=== PATIENT | male | born 1955 | race American Indian/Alaskan Native ===

== ENCOUNTER 2016-09-15 11:39 | Inpatient (IN) | payer BC ==
[~2016-09-15] VITALS: Ht 177.8 cm; Wt 111.1 kg
--- NOTE | ~2016-09-15 | O ---
[facility] [place] [address] OPERATIVE REPORT Name: STEFFI KU Room #: 432-P [facility] IN M.R.#: [id number] Admission: 09/22/16 Attend Phys: Jeff Khan MD Discharge: 09/26/16 Date of : 55 Report #: [id number] THIS REPORT FOR: //name// CC: Juanjo Khan DATE OF SERVICE: 09/22/2016 PREOPERATIVE DIAGNOSES: 1. Lumbar spondylosis. 2. Lumbar stenosis. 3. Lumbar spondylolisthesis. 4. L4-L5 synovial cyst. 5. Right flank lipoma, approximately 2 cm POSTOPERATIVE DIAGNOSES: 1. Lumbar spondylosis. 2. Lumbar stenosis. 3. Lumbar spondylolisthesis. 4. L4-L5 synovial cyst. 5. Right flank lipoma, approximately 2 cm. HISTORY: The patient is a pleasant 60-year-old female with a history of chronic back and persistent right lower extremity radicular type complaints. The patient had undergone previous surgical procedure involving multilevel lumbar laminectomy, and has had recurrent and persistent pain. The patient's imaging studies demonstrated the presence of a moderately well decompressed lumbar spinal canal. In addition, the patient has what appears to be a synovial cyst on the right at L4-L5, tracking along the right L5 nerve root, as well as asymmetrical collapse of the L3-L4 disk space with the retrolisthesis of L3 over L4 and severe neural foraminal stenosis on the left side. The patient was counseled in the outpatient setting, regarding further conservative therapy versus surgical intervention. At this point in time, given the nature and persistence of his complaints, negative impact of these complaints on his daily life, and in correlation with the available imaging studies, I have recommended the patient to pursue a surgical option. The goals of surgery, as well as risks and benefits were reviewed with the patient in outpatient clinical setting, and is adequately documented on the outpatient chart. The patient and his family have acknowledged the understanding of this discussion, and they wished to proceed with surgery. Consent was signed and placed on the chart. DESCRIPTION OF PROCEDURE: The patient was taken to the operating room by Anesthesia, having IVs placed preoperatively. He underwent successful placement of an endotracheal tube for general endotracheal anesthesia. Antibiotics were given per protocol. Lira catheter was placed. The patient was then gently rotated from the supine to prone position on top of the radiolucent [address] [address] OPERATIVE REPORT Name: STEFFI KU Room #: 432-P [facility] IN M.R.#: [id number] Admission: 09/22/16 Attend Phys: Jeff Khan MD Discharge: 09/26/16 Date of : 55 Report #: [id number] table in standard spine configuration. His arms were gently rotated to be in position above his head, with care taken to maintain his elbows and shoulders at less than 90 degrees of flexion. All pressure points were checked and found to be adequately padded. The patient's back was then cleaned, prepped, and draped in the usual sterile fashion. Neurophysiologic monitoring was initiated with somatosensory evoked potentials and free running EMGs. Baselines were established. An external skin marker was used to identify the spinal midline, and two parallel incisions were drawn 3.5 cm lateral to the midline from the top of the L3 pedicle to the bottom of the L5 pedicle. These 2 parallel incisions were then infiltrated with 20 mL of 1% lidocaine with epinephrine. The skin itself was incised #10 blade, down to the thoracolumbar fascia. Thoracolumbar fascia was incised with the same blade. Next, safety wires were placed in the bilateral pedicles of L3, L4, and L5 using Jamshidi needles under AP and lateral fluoroscopic guidance. The wires were then bent out of field. Additionally, on the right-sided L4-L5, a small dilator from Medtronic METRx retractor tray was passed through the wound and fascial opening and docked onto the residual right lamina of L4. Over this, dilator was passed, serial dilators from Medtronic METRx retractor tray. When the wound was successfully dilated to 26 mm, a 26 mm x 7 cm long METRx retractor was passed over the dilators and secured to the table with articulating arm. The dilators were removed. The position and adequacy of the retractor was verified in AP and lateral fluoroscopy. Next, using the microscope to provide illumination and magnification for microdissection, a combination of blunt dissection, as well as electrocautery was used to achieve the residual right L4 lamina through the scar tissue. Once the lamina was identified, the L4-L5 facet complex on the right side was cleared of residual soft tissue. High speed pneumatic drill with sherrill matchstick bur was then used to expand the laminotomy, previously performed at L4-L5 on the right side. Once the ligamentum flavum was identified, an osteotome mallet was then used to disarticulate the inferior articular facet with great care taken not to injure the exposed dura. Residual ligamentum flavum was then perforated with blunt nerve hook, exposing the underlying dura. With the dura in plain view, ligamentum flavum was resected with various sized Kerrison punches. There was obvious evidence of chronic synovial cyst at L4-L5 on the right side. This was attempted to be dissected free from the dura. However, it was very scared in position, and having adequately decompressed the thecal sac and the L5 nerve root externally, I elected to leave some fragments of synovial cyst present, as it did not appear they are causing significant compression as well as out of concern for risk of causing necessary dural injury. Next, the L4 and L5 nerve roots were clearly identified. Bovie electrocautery was used to maintain hemostasis, over the L4-L5 disk space. The thecal sac and the lateral edge of the L5 nerve root was identified and protected with a suction retractor, and #11 blade was then used to perform an annulotomy at L4-L5. Disk material was then recovered from the disk space, disk space at L4-L5 was asymmetrically collapsed. [facility] [address] [place] [address] OPERATIVE REPORT Name: STEFFI KU Room #: 432-P [facility] IN .R.#: [id number] Admission: 09/22/16 Attend Phys: Jeff Khan MD Discharge: 09/26/16 Date of : 55 Report #: [id number] Disk material was then recovered from the L4-L5 disk space using upbiting curettes and various sized rasps were used to clear the disk material, as well as clear fragments of cartilaginous endplate. Next, disk space distractor from [employer] METRx retractor tray were passed in the disk space. Disk space was easily distracted to 10 mm. Next, trials from [employer] Capstone instrument tray were tamped in to disk space and a 9 x 26 mm implant appeared to fit easily. At this point in time, I elected to place bone graft using the patient's own local autograft bone, which was harvested during the decompression, as well as half of the sponge from [employer] Extra Small Infuse kit. The second half of the Infuse sponge was placed in the center of a [employer]DI[employer]onic Elevate 8 mm expanding biomechanical intervertebral device, which was then tamped in the L4-L5 disk space. Having secured the interbody fusion material within the disk space, and adequately decompressed the thecal sac at L4-L5, the microscope was directed inferiorly and the L5 nerve root was then tracked out down towards the neural foramen to ensure that there was any residual synovial cyst material was not causing significant compression. Next, the wound was copiously irrigated with bacitracin irrigation, meticulous hemostasis obtained with bipolar electrocautery and FloSeal. Retractor tube was withdrawn to the skin surface. In the similar fashion on the left side at L3-L4, a 26 mm diameter x 7 cm long METRx retractor tube was placed. The residual lamina at L3 on the left side was identified. High speed pneumatic drill with sherrill matchstick bur was then used to expand the previously placed laminotomy. Osteotome mallet was then used to disarticulate the inferior articular facet of L3. High speed pneumatic drill with sherrill matchstick bur with small Kerrison punch was then used to disarticulate the superior articular facet of L4. Again, residual ligamentum flavum was perforated with blunt nerve hook exposing the underlying dura. With the dura in plain view, ligamentum flavum was resected with various sized Kerrison punches. While protecting both the L3 and L4 nerve roots, a #11 blade was used to perform annulotomy at L3-L4. Due to the collapsed nature of the disk space, as well as retrolisthesis of L3 over L4. A small curette was paced in the disk space and once the disk space was clearly identified, disk space distractor from Medtronic METRx retractor tray was placed in the disk space, and a 9 mm distractor was left in place. Attention returned to the right side, over the previously placed safety wires, polyaxial pedicle screws from the Medtronic Voyager instrument tray were placed using 6.5 x 50 mm polyaxial screws, both at L4 and L5, and a 6.5 x 55 mm polyaxial screw on the right at L3. A 60 mm prebent cobalt chrome virgilio was passed between the screw heads, and using the reduction facet screws, the patient's spondylolisthesis at L3-L4 was reduced to a neutral plane. This allowed for neural foraminal decompression. Set screws were temporarily tightened into position. Attention returned back to the left side, where the previously placed disk space distractor was removed. The disk space was cleared of disk material using various sized curettes and rasp. Next, disk space trial from [employer] Capstone instrument tray were tamped in to disk space, and again a 9 x 26 mm implant appeared to fit easily. Again, I elected to place a expanding biomechanical device at L3-L4, and attempted to correct the patient's [address] [address] OPERATIVE REPORT Name: KINGSARMENWILLY HERI Room #: 432-P [facility] IN .R.#: [id number] Admission: 09/22/16 Attend Phys: Jeff Khan MD Discharge: 09/26/16 Date of : 55 Report #: [id number] spondylolisthesis and degenerative disk changes. The patient's own local autograft bone, which was harvested during the decompression was morcellized and placed within the L3-L4 disk space, as well as half of the sponge from [employer] Extra Small Infuse kit. Second half of the Infuse sponge was placed within an 8 mm expandable [employer] Elevate biomechanical intervertebral device, which was then passed within the L3-L4 disk space. The expandable cage was then expanded until it was taut in its location. The pig farm manager assembly was removed. The temporarily placed set screws on the right side were tightened in their final position. The set screws on the right side were tightened to their torque-limited breakoff point. These screw assemblies were removed. On the left side, the wound was copiously irrigated with bacitracin-containing irrigation. Meticulous hemostasis obtained with bipolar electrocautery and FloSeal. Retractor was withdrawn to skin surface. Polyaxial pedicle screws from [employer] Voyager instrument tray were placed on the left side using 6.5 x 50 mm polyaxial screws at both L4 and L5 and 6.5 x 55 mm screw at L3. Again, a 60 mm prebent cobalt chrome virgilio was passed between the screw heads. Set screws were tightened in the position, and tightened to their torque limited breakoff point. The screw assemblies were removed. The wounds were copiously irrigated with bacitracin irrigation. On the right side, where the patient complained of previous lipoma, I dissected inferiorly from the right flank wound, until the lipoma, which I could palpate through the skin was identified. An Allis clamp was placed to young the lipoma, and the lipoma was excised using electrocautery and sharp technique. Specimen of lipoma was sent to pathology per routine. The wound was copiously irrigated with bacitracin irrigation. Meticulous hemostasis obtained with bipolar electrocautery and FloSeal. The muscle and fascia was closed with interrupted 2-0 Vicryl stitches. A 20 mL of 0.75% Marcaine with epinephrine was injected to the paraspinous muscle to act as local anesthesia. Skin itself was closed with inverted interrupted 2-0 Vicryl stitches, and running 4-0 subcuticular Vicryl stitch. Dressings of Mastisol, Steri-Strips, Telfa, and Tegaderm were applied. The patient was then awoken from anesthesia, and taken to PACU in hemodynamically stable and satisfactory condition. All needle, sponge, and instrument counts were correct times 2 per nursing at the end of the case. <ELECTRONICALLY SIGNED> By: Jeff Khan MD 10/13/16 1101 [id number] 1852 Jeff Khan MD /roldan
--- NOTE | ~2016-09-15 | S ---
[facility] [place] [address] SURGICAL PATH RPT PROCEDURE Name: ERIS MCCULLOUGH Room #: 537-P ADM IN M.R.#: [id number] Admission: 09/22/16 Date of : 55 Discharge: Report #: [id number] Path Case #: [id number] PATHOLOGY REPORT COLLECTION DATE: 09/22/2016 RECEIVED DATE: 09/22/2016 SUBMITTING PHYS: Dr. Jeff Khan MD,PhD OTHER PHYS: Dr. Juanjo Roman SPECIMEN(S) RECEIVED: A.Synovial cyst B.Lipoma right flank * * * * * * * * * * * * FINAL DIAGNOSIS: A. "Synovial cyst," excision: - Synovium with reactive synovial hyperplasia, fibrosis, focal calcifications, and myxoid degeneration. (see comment) B. "Lipoma right flank," excision: - Fibroadipose connective tissue with dense fibrosis, focal fat necrosis, proliferative nerves and reactive changes. (see comment) COMMENT: Within specimen A, the findings are histologically compatible with the clinical impression of synovial cyst. Within specimen B, the findings are histologically suggestive of reparative changes and/or possible scar tissue. Clinical correlation is recommended. (ANGELIAW:; d/t: 09/23/16) PATHOLOGIST: Elana Oneill M.D. REPORT ELECTRONICALLY SIGNED BY: Elana Oneill M.D. DATE/TIME: 09/23/2016 17:08 * * * * * * * * * * * * GROSS PATHOLOGY: A. The specimen is received in formalin labeled "Eris Mccullough, synovial cyst". Received are multiple segments of pink-greenwood fibromembranous tissue measuring 2.8 x 2.5 x 0.4 cm in aggregate dimensions. The specimen is submitted entirely in cassette A1. B. Received in formalin labeled "Eris Mccullough, lipoma right flank," is a segment of pink-greenwood fibroadipose tissue measuring 2.2 x 1.4 x 1.0 cm in maximum dimensions. Sectioning reveals white-greenwood, fibrous cut surfaces throughout. The specimen is submitted entirely in cassette B1. (CAA; 09/22/2016) [address] [place] [address] SURGICAL PATH RPT PROCEDURE Name: ERIS MCCULLOUGH Room #: 537-P ADM IN M.R.#: [id number] Admission: 09/22/16 Date of : 55 Discharge: Report #: [id number] Path Case #: [id number] CLINICAL HISTORY: Lumbar spondylolithiasis INITIAL CPT CODE(S): A; 34559 B; 39109 Professional services performed by [facility] at [address], [place] [address] Technical services performed by [facility] at [address] [place] [address], [facility] [[email or web address]] [address] [address]. [facility] [address] [address] PHONE: [phone] DIRECTOR: John Chan M.D. * * * END OF REPORT * * *
--- NOTE | ~2016-09-15 | H ---
[facility] [place] [address] HISTORY AND PHYSICAL Name: STEFFI KU Room #: 432-P [facility] IN M.R.#: [id number] Admission: 09/22/16 Attend Phys: Jfef Khan MD Discharge: 09/26/16 Date of : 55 Report #: [id number] THIS REPORT FOR: //name// CC: Juanjo Khan AMENDED REPORT - SEE BELOW DICTATED BY: Ana Lilia Murphy RN DATE OF SERVICE: 09/07/2016 Date of surgery is 09/22/2016 at [facility]. PROCEDURE: A left-sided L3-L4 and right L4-L5 transforaminal lumbar interbody fusion with bilateral pedicle screw virgilio fixation with possible open end attempt to resect residual lipoma on right low back. HISTORY OF PRESENT ILLNESS: The patient is a pleasant 60-year-old male who has been followed in the outpatient neurosurgery clinic regarding his lumbar complaints. The patient has a prior history of an L4-L5 decompression surgery about 12 years ago, but reports his pain did not improve following surgery and his pain has progressively worsened over the past 5 years. The patient reports he has ongoing low back pain radiating down his right buttock, wrapping around into his hip and anteriorly down his right leg, stopping at the ankle. He also reports severe muscle cramps in his legs at night. He reports tingling to his right anterior ware and complaints of subjective weakness in his right lower extremity. He reports occasional left ware pain, bilateral median thigh pain with pressure to the touch. For treatment, he has received multiple epidural steroid injections over the years with the last one being about 3-4 months ago. These gave him temporary relief but do not last. He also completed 3 months of physical therapy with some relief and he has continued to do exercises at home. His pain management physician, Dr. Ramos prescribes tramadol about 2 tablets per day for symptom management. He chronic medications for his pain. The patient denies any further issues at this time. He presents today to proceed with his surgical option for his lumbar spine complaints. CURRENT MEDICATIONS: Lantus 100 units/mL 25 units daily, omeprazole 40 mg once a day, tamsulosin 0.4 mg once a day, oxaprozin 600 mg as directed, Topamax 25 mg twice a day, aspirin 81 mg once a day, metoprolol 25 mg twice a day, meloxicam 15 mg once a day, paroxetine 30 mg once a day, Ambien 10 mg once a day, cyclobenzaprine 10 mg 3 times a day, tramadol 50 mg every 6 hours as needed, Humalog insulin 100 units/mL solution 25 units twice a day, multivitamin daily, potassium as directed, magnesium as directed, iron as directed. PAST MEDICAL HISTORY: Arthritis, diabetes mellitus, heart disease, chest pain. [address] [address] HISTORY AND PHYSICAL Name: STEFFI KU Room #: 432-P [facility] IN M.R.#: [id number] Admission: 09/22/16 Attend Phys: Jeff Khan MD Discharge: 09/26/16 Date of : 55 Report #: [id number] PAST SURGICAL HISTORY: Lipoma removal low back, left knee x 2, bilateral feet, bilateral hips replaced, lumbar decompression L4-L5, cardiac stents. SOCIAL HISTORY: The patient is a former smoker. The patient reports no alcohol use. The patient denies illicit drug use. He reports a low-sodium, low-carb, low-fat, low sugar diet. ALLERGIES: To CODEINE, which causes nausea. REVIEW OF SYSTEMS: GENERAL AND CONSTITUTIONAL: The patient admits to fatigue. The patient denies fever, weight gain, weight loss. EYES: The patient denies double vision, blind spots, pain, glasses. ALLERGY AND IMMUNOLOGY: The patient denies seasonal allergies. ENT: The patient admits to nasal congestion and ringing in the ears. The patient denies dizziness, decreased hearing, difficulty swallowing, ear pain. ENDOCRINE: The patient admits to low blood sugar and high blood sugar and excessive thirst. The patient denies hair loss, thyroid disease, cold intolerance, heat intolerance. RESPIRATORY: The patient admits to snoring and shortness of breath with exertion. The patient denies cough, hemoptysis, shortness of breath at rest, wheezing. CARDIOVASCULAR: The patient denies swelling of feet or ankles, high blood pressure, chest pain, difficulty lying flat, palpitations. GASTROINTESTINAL: The patient denies jaundice, abdominal pain, change in bowel habits, constipation, diarrhea, heartburn, nausea, rectal bleeding, vomiting. HEMATOLOGY: The patient denies DVTs, bleeding disorder, easy bruising, swollen glands. GENITOURINARY: The patient denies blood in urine, painful urination. The patient admits to frequent urination and urgency. SKIN: The patient denies eczema, hives, itching, rash, skin lesions. PSYCHIATRIC: The patient denies sleep problems, depression, anxiety, difficulty sleeping. SLEEP: The patient admits to excessive daytime sleepiness. PHYSICAL EXAMINATION: GENERAL: The patient is 70 inches tall, weighs 264 pounds, BMI 37.88. GENERAL APPEARANCE: Adult male, alert, pleasant, no acute distress, obese body habitus, appears comfortable, calm and relaxed. HEAD: Normocephalic, atraumatic. EYES: Extraocular movement full and smooth; pupils equal, round, react to light and accommodation; sclerae are nonicteric. NECK AND THYROID: Neck supple, full range of motion. Trachea midline. SKIN: Good turgor, warm and dry. MUSCULOSKELETAL: No swelling or deformity. [facility] [address] [place] [address] HISTORY AND PHYSICAL Name: STEFFI KU Room #: 432-P [facility] IN M.R.#: [id number] Admission: 09/22/16 Attend Phys: Jeff Khan MD Discharge: 09/26/16 Date of : 55 Report #: [id number] BACK: No scoliosis, no kyphosis, extensive midline surgical scar over lumbar spine, right lower lumbar mobile palpable mass, approximately 1 cm in diameter consistent with previous diagnosis of lipoma; upper extremity 4-5 cm lateral to the midline. NEUROLOGIC: Alert and oriented to person, place, time; cerebellar function normal; cognitive exam grossly normal; cooperative with exam; cranial nerves 2-12 grossly intact; no objective signs of myelopathy appreciated; rises from seated position slowly; gait antalgic; motor strength 5/5 upper and 4+/5 lower extremities; no rigidity; no tremor; sensory exam intact. PSYCHIATRIC: Cooperative with exam; good eye contact; judgment and insight good; mood/affect full range; speech clear; thought process logical, goal directed. IMAGING REVIEWED: 1. Lumbar x-rays in flexion and extension [facility] which revealed disk space narrowing noted at L1, L2, L3 seen greatest at L2-L3. Grade 1 anterior spondylolisthesis of L4 on L5 is noted which changes from 4 mm to 7 mm during flexion. It reduces 3 mm on extension. 2. MRI lumbar spine without contrast [facility], impression: Fairly severe lumbar spondylosis with some mild subluxations is noted. Laminectomy changes are seen at L2-L3 through L4-L5. Bulging disk at multiple levels with some persistent spinal stenosis, which is moderate to severe along the upper L5 level. Moderate synovial cyst is seen on lateral recess on the right at the upper L5 level. There is a small disk extrusion from L3-L4 in the left paramedian location long the upper L4 level. TREATMENT PLAN: We reviewed the patient's interval health history as well as his current presenting complaints and their probable relationships with the previously obtained clinical and radiographic data. The patient is noted to be symptomatic from a combination of stenosis at L4-L5 with superimposed right L4-L5 synovial cyst and mobile spondylolisthesis as well as central disk protrusion with stenosis at L3-L4. We again discussed options to improve the patient's presenting complaints including both continued conservative management versus surgical intervention. At this point in time, given the nature and persistence of his complaints, negative impact of these complaints on his daily life and in correlation with available imaging studies, I recommend the patient pursue a surgical option. Specifically, I have recommended the patient submit to a right-sided transforaminal lumbar interbody fusion at L4-L5 and left-sided transforaminal lumbar interbody fusion at L3-L4 with bilateral L3 through L5 pedicle screw virgilio fixation. I discussed with the patient that we will also attempt to resect remaining portions of his lipoma in the right low back, which seems to by bother him. The patient has other region of significant degenerative change within his visualized thoracic and lumbar spine, I do not proceed to have additional surgical management, I would like to provide the patient with improved satisfaction or outcome from surgery. The goals of surgery as well as risks and benefits were reviewed in detail. [facility] [address] [address] HISTORY AND PHYSICAL Name: STEFFI KU Room #: 432-P [facility] IN M.R.#: [id number] Admission: 09/22/16 Attend Phys: Jeff Khan MD Discharge: 09/26/16 Date of : 55 Report #: [id number] surgery included but were not exclusively limited to bleeding, infection, risk of spinal fluid leakage and its consequences, injury to local structures including the nerve roots, which could lead to permanent pain and/or disability, potential for hardware/implant failure and/or malfunction with the need for further surgery, risk of developing additional areas of structural instability, failure of surgical intervention with the possibility of residual or recurrent symptoms as well as risk of hospitalization undergoing general anesthesia. The patient had the opportunity to have his questions answered to his satisfaction. The patient has acknowledged understanding of discussion as well as the proposed plan of care. After careful consideration of our discussion, the patient expresses his decision to proceed with surgery as described above. I recommended utilization of intraoperative neurophysiologic monitoring to assess for electrodiagnostic changes during surgery, which may affect clinical judgment. The patient will follow up in the postoperative period per routine. AMENDED (DEMOGRAPHIC ERROR) - 09/24/16 REPORT ORIGINALLY E.SIGNED - 09/21/16 @ 0916 <ELECTRONICALLY SIGNED> By: Jeff Khan MD 10/13/16 1057 [id number] 1712 Jeff Khan MD /nt
--- NOTE | ~2016-09-15 | HC ---
[facility] [address] CONSULTATION Name: STEFFI KU Room #: 432-P [facility] IN M.R.#: [id number] Admission: 09/22/16 Attend Phys: Jeff Khan MD Discharge: 09/26/16 Date of : 55 Report #: [id number] THIS REPORT FOR: //name// CC: Juanjo Khan DATE OF SERVICE: 09/23/2016 REASON FOR CONSULTATION: Acute kidney injury. HISTORY OF PRESENT ILLNESS: This 60-year-old male has a history of diabetes mellitus since the age of 22. He has had no significant complications thereof. He has longstanding hypertension as well as known coronary artery disease status post previous percutaneous intervention. He has known BPH as well as depression and dyslipidemia. MEDICATIONS ON ADMISSION: Include lisinopril 10 mg daily, tramadol 50 mg t.i.d., Topamax 25 mg at bedtime, tamsulosin 0.4 mg at bedtime, omeprazole 40 mg daily, Myrbetriq 25 mg at bedtime, Humalog 25-30 units b.i.d., metformin extended release 500 mg daily, Zofran 4 mg p.r.n., amlodipine 5 mg at bedtime, Flonase, paroxetine, metoprolol 25 mg XL daily, Lantus 25 units b.i.d., Ambien 5 mg at bedtime, multivitamin, magnesium oxide, Crestor 20 mg daily, CoQ10 daily, aspirin 81 mg daily. ALLERGIES: He has no known allergies. FAMILY HISTORY: Remarkable for diabetes mellitus, but negative for renal disease. PERSONAL AND SOCIAL HISTORY: The patient does not smoke, use alcohol or have any history of substance abuse. PHYSICAL EXAMINATION: GENERAL: Reveals a well-developed, well-nourished male appearing his stated age, in no acute distress. VITAL SIGNS: Blood pressure 134/66, temperature 98 degrees, pulse 88, respirations 16. SKIN: Warm and dry. There is fair turgor noted. There is no clubbing, cyanosis, edema or adenopathy present. HEENT: The head is normocephalic and atraumatic. The sclerae are white. The pharynx is benign. NECK: Supple. LUNGS: Traylor reveal scattered rhonchi with no evidence of consolidation. CARDIAC: Reveals a regular rate and rhythm without rub. ABDOMEN: Soft and nontender, without palpable mass or organomegaly. NEUROLOGIC: Reveals the patient to be alert and cooperative with a nonfocal [facility] [address] [place] [address] CONSULTATION Name: STEFFI KU Room #: 432-P [facility]#: [id number] Admission: 09/22/16 Attend Phys: Jeff Khan MD Discharge: 09/26/16 Date of : 55 Report #: [id number] exam. DIAGNOSTIC DATA: Available at the time of consultation include sodium 139, potassium 4.3, chloride 102, CO2 22, BUN 23, creatinine 2.6, glucose 188 but it was elevated at 359 on initial presentation, AST 149, calcium 7.0, albumin 3.1, hemoglobin 11.2, hematocrit 29.7. Urinalysis prior to his procedure included specific gravity 1.025, pH 7, 2+ protein, 1+ glucose. ASSESSMENT: 1. Acute kidney injury in this longstanding diabetic with significant underlying suspected diabetic nephropathy as evidenced by 2+ proteinuria on his preoperative urinalysis. He is still under the effects of nonsteroidal drugs and GLENN inhibitors. He needs additional hydration at this time. I expect his renal function to improve with hydration and as he moves further from the effects of angiotensin converting enzyme inhibitor. Additional studies including ultrasound as well as random spot, urine sodium, creatinine and protein will be obtained. A current urinalysis will be obtained. 2. Diabetes mellitus evidently poorly controlled. 3. Hypertension. 4. Coronary artery disease post stent placement. PLAN: Hydration as outlined with further diagnostic studies. We will follow the patient closely with you. <ELECTRONICALLY SIGNED> By: Arun Burrell MD 09/27/16 0703 [id number] 1827 Arun Burrell MD /nt
[~2016-09-15 11:39] MED LIST: ASPIR 8181 MG PO; AZELASTINE137 MCG/0. NS; CENTRUM SILVER1 EAC2 PO; CO Q-10100 MG PO; CRESTOR20 MG PO; FLEXERIL PO; FLOMAX0.4 MG PO; FLUTICASONE PRO16 GM NS; GLUCOPHAGE XR500 MG PO; HUMALOG PE100 UNIT/M SUBQ; LANTUS SOL100 UNIT/1 SUBQ; LISINOPRIL10 MG PO; MAGOX 400400 MG PO; MOBIC15 MG PO; MYRBETRIQ25 MG PO; NORVASC5 MG PO; OMEPRAZOLE40 MG PO; ONDANSETRON HCL4 M2 PO; OXAPROZIN600 MG PO; PAROXETINE HCL30 MG PO; POTASSIUM99 M2 PO; TOPAMAX 25 MG T25 M1 PO; TOPROL XL25 MG PO; TRAMADOL 50 MG50 MG PO; ZOLPIDEM TARTRA10 MG PO
[2016-09-22 07:30] VITALS: BP 142/71
[2016-09-22 18:45] VITALS: BP 174/74
[2016-09-22 23:45] VITALS: BP 156/72
[2016-09-23 04:00] VITALS: BP 144/109
[2016-09-23 07:18] VITALS: BP 134/66
[2016-09-23 10:05] LABS: HEMATOCRIT 33.7 % (42.0-52.0); HEMOGLOBIN 11.2 gm/dL (14.0-18.0); MCH 29.3 pg (26.0-34.0); MCHC 33.3 % (28.0-37.0); RBC 3.83 mil/uL (4.50-6.00); RDW 13.4 % (10.5-14.5); WBC 15.6 thou/uL (4.0-11.0)
[2016-09-23 10:17] LABS: ALBUMIN 3.1 g/dL (3.4-5.0); CALCIUM 7.3 mg/dL (8.5-10.1); CREATININE 2.6 mg/dL (0.6-1.3); POTASSIUM 4.3 mmol/L (3.5-5.1); TOTAL BILIRUBIN 0.5 mg/dL (<0.1-1.0); TOTAL PROTEIN 6.6 g/dL (6.4-8.2)
[2016-09-23 15:15] VITALS: BP 113/57
[2016-09-23 19:59] VITALS: BP 118/58
[2016-09-23 23:33] VITALS: BP 127/65
[2016-09-24 04:35] VITALS: BP 122/70
[2016-09-24 04:44] LABS: URINE BILIRUBIN 1+ (Negative); URINE BLOOD TRACE (Negative); URINE GLUCOSE-RANDOM* NEGATIVE (Negative); URINE KETONES TRACE (Negative); URINE NITRITE NEGATIVE (Negative); URINE PROTEIN (DIPSTICK) TRACE (Negative); URINE SPECIFIC GRAVITY >= 1.030 (1.003-1.035); URINE UROBILINOGEN 0.2 E.U./dl (0.2-1.0)
[2016-09-24 04:47] LABS: URINE COLOR AMBER
[2016-09-24 04:52] LABS: HEMATOCRIT 29.7 % (42.0-52.0); HEMOGLOBIN 9.8 gm/dL (14.0-18.0); MCH 29.4 pg (26.0-34.0); MCV 89.2 fL (80.0-100.0); RBC 3.33 mil/uL (4.50-6.00); RDW 13.7 % (10.5-14.5); WBC 17.7 thou/uL (4.0-11.0)
[2016-09-24 04:56] LABS: PHOSPHORUS 5.8 mg/dL (2.5-4.9); POTASSIUM 4.5 mmol/L (3.5-5.1)
[2016-09-24 05:05] LABS: CREATININE 4.1 mg/dL (0.6-1.3)
[2016-09-24 05:14] LABS: SQUAMOUS None Seen /LPF (0-3)
[2016-09-24 05:15] LABS: CASTS None Seen /LPF (None Seen); URINE RBC 0-2 Rare /HPF (0-2); URINE WBC 0-5 Rare /HPF (0-5)
[2016-09-24 05:16] LABS: BACTERIA None Seen /HPF (None Seen); CRYSTALS None Seen /LPF (None Seen); TRANSITIONAL EPITHEL CELL 0-3 Few /LPF (None Seen)
[2016-09-24 07:26] VITALS: BP 119/56
[2016-09-24 11:07] LABS: URINE CREATININE-RANDOM* 227.8 mg/dL (Not Estab.); URINE PROTEIN-RANDOM* 65.1 mg/dL (Not Estab.)
[2016-09-24 16:13] VITALS: BP 115/62
[2016-09-24 18:56] VITALS: BP 108/62
[2016-09-25 04:52] VITALS: BP 127/55
[2016-09-25 05:12] LABS: URINE BILIRUBIN NEGATIVE (Negative); URINE BLOOD 2+ (Negative); URINE COLOR YELLOW; URINE GLUCOSE-RANDOM* NEGATIVE (Negative); URINE KETONES NEGATIVE (Negative); URINE LEUKOCYTES-REFLEX NEGATIVE (Negative); URINE PROTEIN (DIPSTICK) TRACE (Negative); URINE SPECIFIC GRAVITY 1.025 (1.003-1.035); URINE UROBILINOGEN 0.2 E.U./dl (0.2-1.0)
[2016-09-25 05:15] LABS: SQUAMOUS None Seen /LPF (0-3); URINE RBC 0-2 Rare /HPF (0-2); URINE WBC-REFLEX None Seen /HPF (0-5)
[2016-09-25 05:16] LABS: CASTS None Seen /LPF (None Seen); CRYSTALS None Seen /LPF (None Seen); HYALINE CASTS 0-3 Few /LPF (None Seen)
[2016-09-25 05:35] LABS: HEMATOCRIT 26.7 % (42.0-52.0); MCH 29.7 pg (26.0-34.0); MCHC 33.7 % (28.0-37.0); MCV 88.1 fL (80.0-100.0); RBC 3.03 mil/uL (4.50-6.00); RDW 13.2 % (10.5-14.5); WBC 11.5 thou/uL (4.0-11.0)
[2016-09-25 05:50] LABS: ALBUMIN 2.5 g/dL (3.4-5.0); CALCIUM 7.2 mg/dL (8.5-10.1); CREATININE 2.7 mg/dL (0.6-1.3); PHOSPHORUS 4.2 mg/dL (2.5-4.9); POTASSIUM 4.2 mmol/L (3.5-5.1)
[2016-09-25 07:37] VITALS: BP 130/61
[2016-09-25 17:08] VITALS: BP 128/65
[2016-09-25 22:00] VITALS: BP 122/95
[2016-09-26 04:00] VITALS: BP 137/57
[2016-09-26 05:22] LABS: ALBUMIN 2.3 g/dL (3.4-5.0); CALCIUM 7.7 mg/dL (8.5-10.1); PHOSPHORUS 2.7 mg/dL (2.5-4.9); POTASSIUM 4.5 mmol/L (3.5-5.1)
[2016-09-26 05:24] LABS: CREATININE 1.6 mg/dL (0.6-1.3)
[2016-09-26 08:13] VITALS: BP 159/70
[2016-09-26] MEDS ORDERED: CYCLOBENZAPRINE10 MG PO (10:09)
[2016-09-26] MEDS ORDERED: TRAMADOL 50 MG50 MG PO (10:10)
[2016-09-26] MEDS ORDERED: NORCO 10-325 T1 EACH PO (10:11)
[2016-09-26 10:42] VITALS: BP 159/70
== END 2016-09-26 11:26 | disposition home or self-care (01) | DRG 460 ==
LOC: PRE 11:39 → TBA 09-22 05:19 → 5S 09-22 05:19 → PRE 09-22 12:02 → 5S 09-22 17:18 → 4E 09-25 14:53
PROVIDERS: Family Medicine; Hospitalist; Internal Medicine Nephrology; Neurological Surgery
PROC: 4A11X4G Monitoring of Peripheral Nervous Electrical Activity, Intraoperative, External Approach (ICD-10-PCS; principal; 2016-09-22)
PROC: 0SB20ZZ Excision of Lumbar Vertebral Disc, Open Approach (ICD-10-PCS; principal; 2016-09-22)
PROC: 0SG10AJ Fusion of 2 or more Lumbar Vertebral Joints with Interbody Fusion Device, Posterior Approach, Anterior Column, Open Approach (ICD-10-PCS; principal; 2016-09-22)
DX: M47.896 Other spondylosis, lumbar region (principal); N17.9 Acute kidney failure, unspecified; M48.06 Spinal stenosis, lumbar region; M43.16 Spondylolisthesis, lumbar region; M71.38 Other bursal cyst, other site; I10 Essential (primary) hypertension; E78.5 Hyperlipidemia, unspecified; G89.29 Other chronic pain; M54.9 Dorsalgia, unspecified; I25.10 Atherosclerotic heart disease of native coronary artery without angina pectoris; E11.9 Type 2 diabetes mellitus without complications; N40.0 Benign prostatic hyperplasia without lower urinary tract symptoms; F32.9 Major depressive disorder, single episode, unspecified; D17.9 Benign lipomatous neoplasm, unspecified; Z96.653 Presence of artificial knee joint, bilateral; Z96.643 Presence of artificial hip joint, bilateral; Z79.4 Long term (current) use of insulin; Z79.82 Long term (current) use of aspirin; Z79.899 Other long term (current) drug therapy; Z88.6 Allergy status to analgesic agent; R79.89 Other specified abnormal findings of blood chemistry
CPT/HCPCS: 10783; 10785; 50010; 50101; 50402; 50455; 50515; 50522; 50743; 50745; 50746; 50771; 50782; 50850; 50860; 50923; 51048; 51751; 51779; 51878; 53210; 56526; 56532; 56651; 62110; 62900; 70005